=== PATIENT | male | born 1935 | race Caucasian/White ===

== ENCOUNTER 2017-05-10 15:09 | Inpatient (IN) | payer MEDICARE, BC ==
[~2017-05-10] VITALS: Ht 185.4 cm; Wt 127.0 kg
[~2017-05-10 15:09] MED LIST: ASPIR 8181 MG PO; ATENOLOL50 MG PO; ATORVASTATIN CA80 MG PO; CEPHALEXIN500 M1 PO; CYMBALTA60 MG PO; DIGOXIN125 MCG PO; FUROSEMIDE40 MG PO; HUMALOG MI100 UNITS/ SQ; IRON18 MG PO; LISINOPRIL5 MG PO; METFORMIN HCL850 MG PO; PACERONE100 MG PO; PROAIR HFA INH8.5 GM
[2017-05-10 17:32] LABS: BASOPHILS % 0.6 % (0.0-1.0); EOSINOPHILS % 0.3 % (0.0-6.0); HEMOGLOBIN 14.6 g/dL (14.0-18.0); LYMPHOCYTES # (AUTO) 1.1 (1.0-3.2); LYMPHOCYTES % 16.7 % (18.0-39.1); MEAN CORPUSCULAR HEMOGLOBIN 29.6 pg (28-32); MEAN CORPUSCULAR HGB CONC 31.7 g/dL (31-35); MEAN CORPUSCULAR VOLUME 93.1 fL (81-99); MONOCYTES # (AUTO) 0.6 (0.2-0.8); MONOCYTES % 9.4 % (4.4-11.3); NEUTROPHILS # (AUTO) 4.9 (2.1-6.9); NEUTROPHILS % 72.7 % (38.7-80.0); PLATELET COUNT 173 x10e3/uL (140-360); RED BLOOD COUNT 4.94 x10e6/uL (4.3-5.7)
--- NOTE | 2017-05-10 17:34 | Diagnostic Imaging Report ---
PROCEDURE:X-RAY LEFT FOOT, COMPLETE COMPARISON:None. INDICATIONS:FOOT PAIN, HISTORY OF GANGRENE FINDINGS: There are no fractures, dislocations, lytic or blastic lesions. The bones are well-mineralized. Mild chronic appearing irregularity at the base of the second proximal phalanx, likely post traumatic. No cortical erosions. Mild degenerative changes in the DIP and PIP joints. Diffuse soft tissue swelling, especially in the forefoot. Diffuse vascular calcifications. No subcutaneous gas. CONCLUSION: 1. Diffuse soft tissue swelling of the left foot, especially the forefoot. 2. Mild irregularity at the base of the second proximal phalanx, likely previous posttraumatic changes.. Dictated by: Judd Valentino M.D. on 05/10/2017 at 17:43 Electronically approved by: Judd Valentino M.D. on 05/10/2017 at 17:43
--- NOTE | 2017-05-10 17:37 | Diagnostic Imaging Report ---
PROCEDURE:X-RAY RIGHT FOOT, COMPLETE COMPARISON:None. INDICATIONS:FOOT PAIN, HISTORY OF GANGRENE FINDINGS: There are no fractures, dislocations, lytic or blastic lesions. Calcaneal enthesophyte Achilles tendon insertion. Arterial vascular calcifications. Diffuse soft tissue swelling of the right foot especially the forefoot. More focal osteopenia involving the fourth and fifth digits with questionable cortical irregularities. Possible involvement of the third foot. CONCLUSION: Diffuse soft tissue swelling with more focal osteopenia of the right fourth and fifth digits and possibly involving the third digit. If there is high concern, MR without contrast can be performed to evaluate for osteomyelitis. Dictated by: Judd Valentino M.D. on 05/10/2017 at 17:45 Electronically approved by: Judd Valentino M.D. on 05/10/2017 at 17:45
--- NOTE | 2017-05-10 17:38 | Diagnostic Imaging Report ---
PROCEDURE: A single AP view of the chest. COMPARISON: Chest x-ray 04/22/2014. INDICATIONS: BILATERAL FOOT PAIN FINDINGS: Lines/tubes: Left-sided pacemaker with 2 intact wires. Median sternotomy wires are present. Lungs: The lungs are well-inflated. Enlarged central pulmonary vasculature consistent with central pulmonary venous congestion. Questionable left basilar atelectasis and/or consolidation. Pleura: There is no pleural effusion or pneumothorax. Atherosclerotic calcifications in the aorta. Heart and mediastinum: The heart and the mediastinum are unremarkable. Bones: No acute bony abnormality. Anterior cervical fusion plate. IMPRESSION: Central pulmonary venous congestion. Left basilar atelectasis and/or consolidation. Dictated by: Judd Valentino M.D. on 05/10/2017 at 17:47 Electronically approved by: Judd Valentino M.D. on 05/10/2017 at 17:47
[2017-05-10 17:42] LABS: INR 1.25; PROTHROMBIN TIME 16.4 seconds (11.9-14.5)
[2017-05-10 17:43] LABS: PARTIAL THROMBOPLASTIN TIME 29.9 seconds (23.8-35.5)
[2017-05-10 17:49] LABS: ALANINE AMINOTRANSFERASE 22 IU/L (0-55); ALBUMIN 3.4 g/dL (3.5-5.0); ALBUMIN/GLOBULIN RATIO 0.6 (0.8-2.0); ALKALINE PHOSPHATASE 100 IU/L (40-150); ANION GAP 15.6 mmol/L (8-16); BLOOD UREA NITROGEN 13 mg/dL (7-26); BUN/CREATININE RATIO 13 (6-25); CALCIUM 9.5 mg/dL (8.4-10.2); CARBON DIOXIDE 33 mmol/L (22-29); CHLORIDE 90 mmol/L (98-107); CREATINE KINASE 211 IU/L (30-200); CREATININE, SERUM 0.98 mg/dL (0.72-1.25); EST GLOMERULAR FILTRATION RATE > 60 ML/MIN (60-); GLUCOSE 256 mg/dL (74-118); LIPASE 18 U/L (8-78); MAGNESIUM 1.8 MG/DL (1.3-2.1); POTASSIUM 3.6 mmol/L (3.5-5.1); SODIUM 135 mmol/L (136-145)
[2017-05-10 17:53] LABS: B-TYPE NATRIURETIC PEPTIDE2 1125.1 pg/mL (0-100)
[2017-05-10] MEDS ORDERED: MORPHINE SULFATE 2 MG/ML SYR IV PRN (19:30)
[2017-05-10] MEDS ORDERED: ONDANSETRON HCL INJ 2 MG/ML VIAL IV PRN (19:30)
[2017-05-10] MEDS: VANCOMYCIN 1GM/NS 250 ML 250 ML IV SCH (23:34)
[2017-05-10] MEDS: SODIUM CHLORIDE 0.9% 1000ML 1,000 ML IV SCH (23:34)
[2017-05-10] MEDS: PIPER-TAZ 3.375 GM 50 ML IV SCH (23:50)
[2017-05-10] MEDS ORDERED: POTASSIUM CHLO10 ME1 PO (23:58)
[2017-05-10] MEDS ORDERED: CLOPIDOGREL75 MG PO (23:58)
[2017-05-10] MEDS ORDERED: LEVEMIR100 UNIT/1 SC (23:58)
[2017-05-10] MEDS ORDERED: VITAMIN D31000 UNI1 PO (23:58)
[2017-05-10] MEDS ORDERED: PENTOXIFYLLINE400 MG PO (23:58)
[2017-05-10] MEDS ORDERED: METOPROLOL SUCC50 MG PO (23:58)
[2017-05-11] MEDS: PIPER-TAZ 3.375 GM 50 ML IV SCH ×4 (01:54→22:04)
[2017-05-11] MEDS: SODIUM CHLORIDE 0.9% 1000ML 1,000 ML IV SCH ×3 (03:08→12:06)
[2017-05-11 04:45] LABS: BASOPHILS % 0.6 % (0.0-1.0); EOSINOPHILS # (AUTO) 0.1 (0.0-0.4); EOSINOPHILS % 0.8 % (0.0-6.0); HEMATOCRIT 38.2 % (38.2-49.6); HEMOGLOBIN 12.1 g/dL (14.0-18.0); LYMPHOCYTES # (AUTO) 1.1 (1.0-3.2); LYMPHOCYTES % 15.4 % (18.0-39.1); MEAN CORPUSCULAR HEMOGLOBIN 29.9 pg (28-32); MEAN CORPUSCULAR HGB CONC 31.7 g/dL (31-35); MEAN CORPUSCULAR VOLUME 94.3 fL (81-99); MONOCYTES # (AUTO) 0.7 (0.2-0.8); MONOCYTES % 9.6 % (4.4-11.3); NEUTROPHILS # (AUTO) 5.2 (2.1-6.9); NEUTROPHILS % 73.3 % (38.7-80.0); PLATELET COUNT 144 x10e3/uL (140-360); RED BLOOD COUNT 4.05 x10e6/uL (4.3-5.7); RED CELL DISTRIBUTION WIDTH 15.7 % (11.7-14.4)
[2017-05-11 05:01] LABS: ANION GAP 12.9 mmol/L (8-16); BLOOD UREA NITROGEN 12 mg/dL (7-26); BUN/CREATININE RATIO 16 (6-25); CALCIUM 7.5 mg/dL (8.4-10.2); CARBON DIOXIDE 27 mmol/L (22-29); CHLORIDE 102 mmol/L (98-107); CHOL/HDL RATIO 3.3 (3.9-4.7); CHOLESTEROL 77 MD/DL (0-199); CREATININE, SERUM 0.74 mg/dL (0.72-1.25); EST GLOMERULAR FILTRATION RATE > 60 ML/MIN (60-); GLUCOSE 216 mg/dL (74-118); HDL CHOLESTEROL 23 MG/DL (40-60); LDL CHOLESTEROL 42 MG/DL (60-130); SODIUM 139 mmol/L (136-145); TRIGLYCERIDES 62 MG/DL (0-149)
[2017-05-11 05:03] LABS: POTASSIUM 2.9 mmol/L (3.5-5.1)
[2017-05-11] MEDS ORDERED: POTASSIUM CHLORIDE 20MEQ/100ML 100 ML IV ONE (05:45)
[2017-05-11] MEDS ORDERED: DEXTROSE 50% SYRINGE 50 ML IV PRN (05:45)
[2017-05-11] MEDS ORDERED: NON-FORMULARY MEDICATION (Amiodarone Hcl (Pacerone) 100 MG) PO SCH (06:30)
[2017-05-11] MEDS ORDERED: CHOLECALCIFEROL 1,000 UNIT TAB PO SCH ×2 (09:00)
[2017-05-11] MEDS ORDERED: METOPROLOL SUCCINATE 50 MG TAB XL PO SCH (09:00)
[2017-05-11] MEDS ORDERED: CLOPIDOGREL BISULFATE 75 MG TAB PO SCH (09:00)
[2017-05-11] MEDS ORDERED: IRON 28 MG PO SCH (09:00)
[2017-05-11] MEDS ORDERED: FERROUS SULFATE 325 MG TAB PO SCH (09:00)
[2017-05-11] MEDS ORDERED: ASPIRIN 81 MG CHEW TAB PO SCH (09:00)
[2017-05-11] MEDS ORDERED: POTASSIUM CHLORIDE 10 MEQ TABCR PO SCH (09:00)
[2017-05-11] MEDS ORDERED: AMIODARONE HCL 200 MG TAB PO SCH (09:00)
[2017-05-11] MEDS: FUROSEMIDE 40 MG TAB PO SCH ×2 (09:16→17:00)
[2017-05-11] MEDS: INSULIN DETEMIR 100 UNIT/ML PEN SQ SCH ×2 (09:16→09:18)
[2017-05-11] MEDS: INSULIN REGULAR, HUMAN 100 UNIT/1 ML 3ML VIAL SQ SCH ×4 (09:17→21:00)
[2017-05-11] MEDS: VANCOMYCIN 1GM/NS 250 ML 250 ML IV SCH ×2 (10:56→23:15)
[2017-05-11] MEDS ORDERED: CALCIUM CHLORIDE 13.6 MEQ in SODIUM CHLORIDE 0.9% 100 ML 100 ML IV ONE (11:00)
[2017-05-11] MEDS ORDERED: SODIUM CHLORIDE 0.9% 1000ML 1,000 ML IV SCH (12:36)
[2017-05-11 13:11] LABS: BILIRUBIN,URINE NEGATIVE (NEGATIVE); CLARITY,URINE CLEAR (CLEAR); COLOR,URINE YELLOW (YELLOW); KETONES,URINE NEGATIVE (NEGATIVE); LEUKOCYTE ESTERASE ,URINE NEGATIVE (NEGATIVE); NITRITE,URINE NEGATIVE (NEGATIVE); URINE UROBILINOGEN 0.2 mg/dL (0.2 - 1)
[2017-05-11 13:12] LABS: PROTEIN,URINE DIPSTICK 1+ (NEGATIVE)
[2017-05-11 13:27] LABS: RBC,URINE 0-5 /HPF (0-5); WBC,URINE (MAN) 0-5 /HPF (0-5)
[2017-05-11 13:28] LABS: BACTERIA,URINE RARE /HPF; EPITHELIAL CELLS,URINE RARE /LPF
--- NOTE | 2017-05-11 16:54 | Consultation ---
DATE OF CONSULTATION: May 11, 2017 CARDIAC CONSULTATION REASON FOR CONSULTATION: Gangrenous legs with severe cellulitis of the left lower extremity. HISTORY: Mr. Jo is an unfortunate 81-year-old gentleman who is known with multiple medical health problems. He is known to have hypertension, coronary artery disease, status post coronary artery bypass surgery, status post left carotid endarterectomy, very severe advanced peripheral arterial vascular disease, atrial fibrillation, pacemaker, several TIAs, hypercholesterolemia, peripheral neuropathy and repeated GI bleed in addition to morbid obesity. Patient is also known to have cervical spine disease status post cervical fusion. Patient is followed by Dr. Leyva for his gangrenous changes in both lower extremities in the feet. He got severe cellulitis of the left lower extremity as well as gangrenous changes in bilateral toes. He was seen by Dr. Leyva. He failed medical therapy as an outpatient and was admitted for IV antibiotic and further management. Regarding his peripheral arterial vascular disease, he got very severely calcified lower extremities. In fact, the patient had several interventions over the years as salvage. He had a left iliac stent for totally occluded iliac. This was in 2009. At that time, it showed severe disease of the tibial and below-knee arteries in addition to superficial femoral arteries. Plan was for medical therapy because of the patient's extensive disease and extensive comorbid condition. Unfortunately in 2013, he had severe gangrene change of the right lower extremity. He had rescue salvage intervention of the right superficial femoral as well as opening of the deep peroneal artery. This was done successfully using atherectomy and balloon intervention. Patient managed to save his leg and his foot. He is followed in our office. We elected to treat him medically because of comorbid condition and poor general condition. Unfortunately, he seems to be having now cellulitis and gangrenous changes in both lower extremities. For that reason, he was seen by Dr. Leyva. He failed oral antibiotics and admitted for further management. Cardiac-flores, the patient does have easy fatigability and shortness of breath on minimal exertion. Activities are quite limited. Atrial fibrillation on treatment with amiodarone and beta blockers. We are unable to anticoagulate him. Regarding his hypertension, he is taking medication. Patient also is pacemaker dependent and had most recent pacemaker generator change 02/24/2016. As we mentioned, he got very, very severe peripheral arterial vascular disease, status post several interventions in the past, and patient deemed very difficult to revascularize unless it is salvage intervention. MEDICATIONS: Current medications at home include: 1. Plavix 75 mg a day. 2. Metoprolol succinate 25 mg a day. 3. Amiodarone 100 mg a day 3 days per week. 4. Atorvastatin 80 mg a day. 5. Lasix 40 mg twice a day. 6. Humalog. 7. Paxil. 8. Iron and vitamins. ALLERGIES: FLOMAX, MARKOS INH[employer]ITOR AND ARB. PAST MEDICAL HISTORY 1. Repeated falls. In January 2015 he had C-spine fracture, and he needed to have surgery. 2. Coronary artery disease status post coronary artery bypass surgery in May 2012 using 3 vessels, SVG to OM and RCA and [place] to LAD. 3. Heavily calcified coronaries. 4. Heavily calcified aorta, abdomen and lower extremities. 5. Left carotid endarterectomy in 2003 complicated by difficulty swallowing. 6. Left iliac stent in 2009 using 9 x 38 left iliac stent for totally occluded iliac. 7. Salvage right superficial femoral artery and the deep peroneal artery intervention. 8. Pacemaker in 2007 with generator change in January 2016. 9. Hypertension. 10. Diabetes mellitus. 11. Hypercholesteremia. 12. Advanced COPD. 13. Decreased hearing. 14. DVT of the right arm following PICC line placement in 2009. 15. Decreased hearing. 16. 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 17. Peripheral neuropathy. 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 19. Repeated GI bleed. 20. Bilateral cataract surgery. 21. Prostate surgery. 22. Left rotator cuff surgery. 23. Tonsillectomy. 24. Skin cancer surgery. 25. Cervical spine fusion. 26. Cholecystectomy. 27. Debility. SOCIAL HISTORY: He is . He stopped smoking in 1979. He is not an alcohol drinker. 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 FAMILY HISTORY: Mother at age 92 with complication of congestive heart failure. Father at age 83 with Alzheimer complications. He is an only child. He does have 5 children. REVIEW OF SYSTEMS GENERAL: Failure to thrive. Fever, weak and debilitated. HEENT: Remarkable for lightheadedness and repeated falls. PULMONARY: Severe shortness of breath on minimal exertion. CARDIAC: Anginal chest pain, severe claudication. GI: Poor appetite. Repeated GI bleed. HEMATOLOGIC: Easy bruising but no bleeding. : Increased frequency of urination. Difficulty in urination. MUSCULOSKELETAL: Chronic leg fatigue, abnormal gait. NEUROLOGIC: Severe debility. Numbness of both lower extremities. Left arm numbness. Poor coordination. Using walker for repeated falling. SKIN: Fissuring and cracking in the skin of the feet with discoloration of the lower extremities. PHYSICAL EXAMINATION GENERAL: Obese gentleman. Height of 6 feet 1 inch. Weight of 291. Chronically ill. VITALS: Blood pressure 120/80. Heart rate of 60. Respiratory rate of 18. HEENT: Decreased hearing. Decreased vision. NECK: Bilateral carotid bruit. Scar of previous carotid endarterectomy. CHEST: Decreased lung expansion. Pacemaker noted in place. Crackles. HEART: Distant heart sounds. ABDOMEN: Obese. EXTREMITIES: Dressing to both feet. Severe skin changes from the knee below. Gangrenous toe changes as described by the patient and Dr. Leyva. Severe cellulitis with redness all the way to the left knee. Swelling of the left lower extremity and the left dorsum. NEUROLOGIC: Gait is not examined. He is very weak and debilitated. IMPRESSION AND PLAN 1. Severe peripheral arterial vascular disease with gangrenous changes of both lower extremities, more severe of the left lower extremity with severe cellulitis. 2. Gangrenous changes of most toes. 3. Chronic systolic congestive heart failure. 4. Coronary artery disease with bypass graft and angina. 5. Hypertensive heart disease with chronic heart failure. 6. Atrial fibrillation. 7. Diabetes mellitus with end-organ damage. 8. Debility. 9. Frequent falls. 10. Venous insufficiency. 11. Obesity. Patient is on appropriate therapy. He is started on antibiotics. Will continue the same cardiac meds. Will review the old angiogram. This patient poses major difficulty in taking care of him because of the diffuse nature of his disease. His prognosis is guarded. He is already at risk to lose his feet. In fact, we were very shant in 2014 to save his lower extremities. We will review his data and will talk to him what to do. Regardless, salvage angioplasty success rate would be limited and complications would be high. Furthermore, besides the lower extremity themselves, his life expectancy also is limited because of his comorbid condition. Patient is aware of his status. He understands his condition. Will revisit with him and will formulate a plan. Meanwhile, will continue treatment. Job#: [id number] [facility]UEL [facility]LL[facility]
[2017-05-11 18:17] VITALS: BP 97/71
[2017-05-11 20:00] VITALS: BP 94/75
[2017-05-11] MEDS ORDERED: INSULIN DETEMIR 100 UNIT/ML PEN SQ SCH (21:00)
[2017-05-11 21:30] VITALS: BP 94/75
--- NOTE | 2017-05-11 22:43 | History and Physical ---
PCP: Dr. Jacob Rodriguez CONSULTANTS: 1. Dr. Nieves Block 2. Dr. Pancho Leyva CHIEF COMPLAINT: Left third toe gangrene and left foot cellulitis. 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 Leyva for worsening of left third toe with gangrene with left leg cellulitis that had been worsening over the last couple of weeks. The patient denies any fever. PAST MEDICAL HISTORY: Has chronic CHF; diabetes mellitus type 2; hypertension; pacemaker, CABG and a bypass that was done 4 years ago, pacemaker was done 5 years ago. SOCIAL HISTORY: History of smoking. He stopped smoking 30 years ago. REVIEW OF SYSTEMS: All systems reviewed and negative other than integumentary which has left third toe with gangrene and foul smelling, left leg with cellulitis. Some increased work of breathing likely related to his CHF. LABS: Sodium 139, potassium 2.9, chloride 102, CO2 27, BUN 12, creatinine 0.74, glucose 226. White count 7.08, hemoglobin 12.1, hematocrit 38.2, platelets 144,000. PT 16.4, PTT 29.9, INR 1.25. AST 28, ALT 22, alkaline phosphate 100, total bili 3.3. BNP is 1125. Calcium 7.5. 77, LDL 42, HDL 23. PHYSICAL EXAMINATION: CONSTITUTIONAL: Patient is well dressed. Patient is seen in the emergency room. HEENT: Extraocular muscles are intact. Sclerae are anicteric. LUNGS: Decreased breath sounds, some rales scattered and occasional wheezes. NECK: Supple. Trachea midline. CARDIOVASCULAR: Regular rate and rhythm. ABDOMEN: Soft. Bowel sounds present. It is nontender, nondistended. Patient is obese. NEUROLOGIC: Nonfocal. EXTREMITIES: Does have some left lower leg with erythema and cellulitis. Left foot covered with foul smelling to the left third toe gangrene. Right leg with hyperpigmentation. DIAGNOSES AND PLAN: 1. Left third toe gangrene. Consult Dr. Leyva. Will continue with Zosyn and vancomycin intravenously. 2. Left leg cellulitis. Will continue with the aforementioned intravenous antibiotics. 3. Hypokalemia, potassium 2.2. Repleted potassium with 20 mEq of intravenous x3 doses. Will get a complete blood cell count and B-type natriuretic peptide and a basic metabolic profile as well as calcium, magnesium, and phosphorus in the morning. 4. Hypocalcemia. Repleted with calcium chloride 1 g intravenously x1 dose. 5. Diabetes mellitus type 2. Will continue on a sliding scale and continue home medications. 6. Hypertension. Will continue on p.o. medicines at home. 7. Congestive heart failure. Will continue with his Lasix at home as well as his potassium. 8. History of coronary artery bypass graft with a bypass 5 years ago. 9. History of pacemaker. Will continue with intravenous normal saline, was at 125, I have lowered it to 50 mL per hour. Dictated by Medardo Orr NP Job#: [id number]
[2017-05-12] VITALS: BP 116/81
[2017-05-12] MEDS: PIPER-TAZ 3.375 GM 50 ML IV SCH (03:00)
[2017-05-12 04:12] VITALS: BP 116/81
[2017-05-12] MEDS ORDERED: HEPARIN SOD/SOD CHLORIDE 2,000 ML ONE (08:59)
[2017-05-12] MEDS ORDERED: LIDOCAINE HCL 2% LOCAL 20 ML VIAL ONE (08:59)
[2017-05-12] MEDS ORDERED: METOPROLOL SUCCINATE 50 MG TAB XL PO SCH (09:00)
[2017-05-12] MEDS ORDERED: IOPAMIDOL 370 MG/ML 200 ML INFUS..BTL INJ ONE (09:00)
--- NOTE | 2017-05-12 09:47 | Progress Note ---
DATE: May 12, 2017 SUBJECTIVE: Patient was seen at bedside accompanied by multiple family members. Patient at about 4 a.m. this morning. Approximately, 20-25 minutes was spent with the patient and patient's family members consoling the patient's family members. Patient ended up sleeping and coding when he was sleeping with no distress. Was informed by nurse that the patient got up to go to the bathroom at approximately 2 in the morning. Vitals were going to be done at 4 a.m., he was found with no pulses. Job#: [id number] RI
--- NOTE | 2017-05-12 11:23 | Consultation ---
DATE OF CONSULTATION: May 11, 2017 PODIATRY CONSULTATION REASON FOR CONSULTATION: Gangrenous changes with multiple grade-4 ulcers to both lower extremities. HISTORY OF PRESENT ILLNESS: This is a pleasant, 81-year-old white male who was seen at the office on 05/10/2017 with severe gangrenous changes and multiple grade-4 ulcers to both lower extremities. He was denying any history of fever, chills, nausea or vomiting. He was instructed he needs to be admitted to the hospital for IV antibiotics and will eventually need an amputation level to be determined. PAST MEDICAL HISTORY: Remarkable for type-2 diabetes, congestive heart failure, hypertension. PAST SURGICAL HISTORY: Remarkable for CABG 4 years ago and pacemaker 5 years ago. SOCIAL HISTORY: He did have a history of smoking, stopped 30 years ago. No recreational drug use. No alcohol. CURRENT MEDICATIONS: Note listed in the chart, including IV Zosyn and vancomycin. FAMILY HISTORY: Remarkable for diabetes. REVIEW OF SYSTEMS CARDIAC: Was denying any palpitations or arrhythmias. RESPIRATORY: Was denying any shortness of breath or productive cough. GASTROINTESTINAL: Denying any diarrhea or constipation. GENITOURINARY: Denying any hematuria. VITALS: Afebrile. Pulse rate 78, respirations 18, blood pressure 97/71, O2 saturation at 93%. LABS: Noted, showing a white blood cell count of 6.72, hemoglobin 14.6, hematocrit 46.0, platelet count 173. PODIATRIC PHYSICAL EXAMINATION VASCULATURE: Pedal pulses to both the dorsalis pedis and posterior tibial arteries are greatly diminished. Skin temperature between warm and cool to touch. NEUROLOGICAL: Examination reveals a decrease in protective sensation when utilizing the [place] 5.07 monofilament wire. MUSCULOSKELETAL: Examination shows muscle mass to be symmetric and muscle strength to be 4/5 to all muscle groups. Has gangrenous changes to the 4th and 5th digits to the left foot with a grade-4 ulceration to the lateral aspect of the 4th digit, right foot, with severe foul smell noted. X-rays taken were negative for any gas in the tissue. ASSESSMENT: Gangrene, grade-4 ulcers, cellulitis, and peripheral arterial disease. PLAN: Continue IV antibiotics. Will start diluted wet-to-dry Betadine dressings. Dr. Block was consulted for vascular evaluation. Patient was going to be scheduled for any type of surgical intervention depending on vascular findings. Job#: [id number] MH
--- NOTE | 2017-05-12 14:13 | Discharge Summary ---
DATE OF ADMISSION: 05/11/2017 DATE OF DEMISE: 05/12/2017 TIME: 05:20. PRIMARY CARE PROVIDER: Not a local doctor. RN POOL: Dr. Pancho Leyva, who was the one that admitted the patient. ADMITTING DIAGNOSES 1. Cellulitis left leg with gangrene, left third toe. 2. Hypertension with coronary artery disease and congestive heart failure. 3. Type 2 diabetes with peripheral arterial disease. CAUSE OF : Sudden cardiac in a patient with multiple medical comorbidities. BRIEF HISTORY: Mr. oJ is an 81-year-old gentleman who presented with cellulitis of the left lower leg with gangrene of the left third toe. The patient has severe peripheral arterial disease as well, being seen by Dr. Block. He is admitted for IV antibiotics and debridement of the diabetic foot. HOSPITAL COURSE: The patient was admitted to the floor, started on IV vancomycin and Zosyn and wound care. He was seen by Dr. Leyva and Dr. Block and had plans for arteriogram and possible angioplasty on the left leg and eventual surgical debridement by Dr. Leyva. The patient was seen around 2 a.m. awake, going to the bathroom, somewhat agitated. At 4 a.m., the patient was found with no pulse or respiration. Resuscitation was attempted unsuccessfully and the patient was pronounced at 05:20 a.m. by the ER physician with the final cause of being a sudden cardiac in a patient with comorbidities of hypertension, type 2 diabetes, coronary artery disease, and peripheral arterial disease. HUNG HOFF MD Job#: [id number] [facility]
== END 2017-05-12 10:47 | disposition expired | DRG 300 ==
LOC: ER 15:09 → ERHOLD 05-11 01:24 → MED/SURG2 05-11 17:55
PROVIDERS: ADMIT Internal Medicine; ATTEND Internal Medicine
DX: E11.52 Type 2 diabetes mellitus with diabetic peripheral angiopathy with gangrene (principal); E11.622 Type 2 diabetes mellitus with other skin ulcer; E11.65 Type 2 diabetes mellitus with hyperglycemia; L03.115 Cellulitis of right lower limb; E66.01 Morbid (severe) obesity due to excess calories; I50.22 Chronic systolic (congestive) heart failure; L03.116 Cellulitis of left lower limb; L97.924 Non-pressure chronic ulcer of unspecified part of left lower leg with necrosis of bone; I46.2 Cardiac arrest due to underlying cardiac condition; I11.0 Hypertensive heart disease with heart failure; E83.51 Hypocalcemia; I25.10 Atherosclerotic heart disease of native coronary artery without angina pectoris; Z95.820 Peripheral vascular angioplasty status with implants and grafts; Z68.36 Body mass index [BMI] 36.0-36.9, adult; I70.0 Atherosclerosis of aorta; J44.9 Chronic obstructive pulmonary disease, unspecified; M47.9 Spondylosis, unspecified; H91.90 Unspecified hearing loss, unspecified ear; I87.2 Venous insufficiency (chronic) (peripheral); E87.6 Hypokalemia; Z95.1 Presence of aortocoronary bypass graft; Z91.81 History of falling; Z79.4 Long term (current) use of insulin; Z79.01 Long term (current) use of anticoagulants; Z98.1 Arthrodesis status; Z86.73 Personal history of transient ischemic attack (TIA), and cerebral infarction without residual deficits; Z87.891 Personal history of nicotine dependence; I48.91 Unspecified atrial fibrillation; R53.81 Other malaise
CPT/HCPCS: 31500; 36415; 71045; 80048; 80053; 80061; 81001; 82550; 82553; 82948; 83605; 83690; 83735; 83880; 84484; 85025; 85610; 85651; 85730; 87040; 87086; 92950; 93005; 99284; J2001; J2270; J2405; J2543; J3370; J3480; J7030; Q9967